=== PATIENT | female | born 2000 | race Two or more races ===

== ENCOUNTER 2025-02-15 22:49 | Emergency (ER) | payer MEDICAID, SELFPAY ==
--- NOTE | ~2025-02-15 | CT_ITS ---
CLINICAL HISTORY: New onset seizure, head injury CT head without contrast Comparison: None Findings: No intra-axial mass, midline shift, hydrocephalus, or acute hemorrhage. No significant atrophy-like change or white matter disease. There is no sinus or mastoid fluid. The orbits are unremarkable. There is no acute fracture. IMPRESSION: 1. No acute intracranial findings. This document has been electronically signed by: Seng Lockwood MD on 02/16/2025 00:56:21
--- NOTE | ~2025-02-15 | CT_ITS ---
CLINICAL HISTORY: New onset seizure, neck pain. CT cervical spine without contrast Comparison: None Findings: Exaggeration of the cervical lordosis. No significant degenerative change. No acute fractures or dislocations. Soft tissues of the neck are normal. Lung apices are clear. IMPRESSION: No acute findings. This document has been electronically signed by: Seng Lockwood MD on 02/16/2025 00:53:45
[2025-02-15 22:58] VITALS: BP 119/82; BP 138/93; PULSE 110; PULSE 118; RESP 20; TEMP 36.4; O2SAT 96; O2SAT 98; BMI 22.4
--- NOTE | 2025-02-15 23:11 | ECG_ITS ---
Test Reason : seizure Blood Pressure : */* mmHG Vent. Rate : 101 BPM Atrial Rate : 101 BPM P-R Int : 142 ms QRS Dur : 80 ms QT Int : 336 ms P-R-T Axes : 65 63 63 degrees QTcB Int : 435 ms Sinus tachycardia Otherwise normal ECG No previous ECGs available Referred By: Generic ED Physician Electronically Signed By: Bao Park
[2025-02-15] MEDS: ondansetron HCL 4 MG/2 ML VIAL IVPUSH (23:21)
--- NOTE | 2025-02-15 23:23 | ED.SEIZURE ---
HPI - Seizure General Chief Complaint: Seizure Stated Complaint: witnessed seizure at work Time Seen by Provider: 02/15/25 23:20 Source: patient, EMS and wrapping clerk Mode of arrival: EMS Limitations: no limitations History of Present Illness ED Provider: DR. Quinones HPI Narrative: 24-year-old female who is known to be healthy witnessed by her co-worker having seizure activity for about 30 seconds as a result patient fell backward hit her head patient declined any personal history of seizure or or taking antiseizure medication, patient is feeling nauseous, vomited 3 times. There is a superficial tongue bite on right side of the tongue patient has no pain, no urinary incontinence as per EMS patient was postictal confusion. No sick contacts. Declined any use of alcohol or recreational drugs. Related Data Previous Rx's ?Medication ?Instructions ?Recorded levetiracetam 500 mg tablet 500 mg PO BID #60 tabs 02/16/25 (Keppra) Allergies Allergy/AdvReac Type Severity Reaction Status Date / Time No Known Allergies Allergy Verified 02/15/25 23:01 Review of Systems Review of Systems: All other systems are reviewed and are negative Constitutional: Reports as per HPI and Reports no additional constitutional complaints Eyes: Reports as per HPI and Reports no additional eye complaints Reports system reviewed and no additional complaints, except as documented Cardiovascular: Reports as per HPI and Reports no additional cardiovascular complaints Respiratory: Reports as per HPI and Reports no additional respiratory complaints Gastrointestinal: Reports as per HPI and Reports no additional gastrointestinal complaints Genitourinary: Reports no additional female genitourinary complaints Musculoskeletal: Reports no additional musculoskeletal complaints Skin/Breast: Reports system reviewed and no additional complaints, except as docu Psychiatric: Reports no additional psychiatric complaints Endocrine: Reports no additional endocrine complaints Hematologic/Lymphatic: Reports no additional hematologic/lymphatic complaints Allergic/Immunologic: Reports no additional allergic/immunologic complaints Reports system reviewed and no additional complaints, except as documented and Reports Abnormal speech present [facility] Social History Social History Advance Directives: No Advance Directives Information Provided: Yes Physical Exam Vital Signs: Vital Signs: Last Vital Signs Temp 98.8 F 02/16/25 00:49 Pulse 80 02/16/25 00:49 Resp 18 02/16/25 00:49 BP 120/83 02/16/25 00:49 Pulse Ox 100 02/16/25 00:49 O2 Del Method Room Air 02/16/25 00:49 BMI result Body Mass Index 22.4 Vital signs have been reviewed and appear to be correct. Blood pressure elevated. Heart rate normal. Respiratory rate normal. Temperature normal. Oxygen saturation normal. Appearance: Alert. Oriented X3. No acute distress. Head: Normal external exam. Normocephalic. Atraumatic. No Gaytan signs noted. No raccoon eyes noted Eyes: PERRLA. EOMI. Conjunctiva and sclera normal. Eyelids normal. ENT: TM's Normal. Pharynx normal. Uvula midline. Moist mucous membranes. No trismus noted. No drooling noted. No muffled voice noted. Neck: Normal inspection. Neck supple. FROM. No adenopathy. Thyroid Normal. No meningeal signs. No neck mass noted. CVS: Normal heart rate and rhythm. Heart sound normal. No murmurs noted. Pulses normal throughout. Respiratory: No respiratory distress. Painless inspiration. Breath sounds normal. No wheezes/rales/rhonchi noted. Chest nontender. No accessory muscle usage noted or decreased air movement noted. Abdomen: Soft and nontender. Bowel sounds normal in all 4 quadrants. No distention noted. No organomegaly noted. No visible injury noted. Back: No CVA tenderness. Full range of motion noted. Skin: Skin warm and dry. Normal skin color. Normal skin turgor. No rashes/lesions/lacerations noted. Extremities: No lower extremity edema. Extremities exhibit normal range of motion. Extremities nontender. Neuro: Mental status: Normal attention, orientation, memory, and affect. Cranial nerves: Pupils are equal, round and reactive to light, EOMI, visual joseph are fall, face is symmetric, facial sensations are normal. Motor examination normal muscle tone, strength to 4 extremities. DTR are +2, planter's are flexor. Sensory exam; normal coordination, no ataxia, gait stable. Cerebellar exam: Qsurdb-lu-[id number] and frnh-hq-[id number] is normal. Extrapyramidal system: No tremors, no rigidity with normal facial expressions. Pronator drift not present Course Reevaluation(s) Reevaluation #1: 24-year-old female otherwise healthy new onset of seizure. Normal neuro exam, head CT is unremarkable, GCS of 15, normal electrolyte, will start on Keppra. Patient was instructed to follow-up with Dr. Jacinto as an outpatient. Patient is positive for COVID-19 was instructed to use face mask at all times, frequent hand wash, keep social distancing, self quarantine. Time: 01:00 Medications Administered Discontinued Medications Generic Name Dose Route Start Last Admin Trade Name Blackq PRN Reason Stop Dose Admin Levetiracetam 500 mg 02/15/25 23:40 02/16/25 00:04 Levetiracetam 500 Mg Tablet PO 02/15/25 23:41 500 mg ONCE ONE Administration Ondansetron HCl 4 mg 02/15/25 23:17 02/15/25 23:21 Ondansetron Hcl 4 Mg/2 Ml Vial IVPUSH 02/15/25 23:18 4 mg ONCE ONE Administration Ondansetron HCl 4 mg 02/15/25 23:40 02/15/25 23:47 Ondansetron Odt 4 Mg Tab.Rapdis TRANSLINGU 02/15/25 23:41 Not Given ONCE ONE Medical Decision Making Differential Diagnosis Differential Diagnoses: The differential diagnosis associated with the presentation includes (Intracranial bleed, intracranial pathology, electrolyte derangement, UTI, drug abuse, alcohol use, .) Admission/Observation Consideration of admission/observation: Escalation of care including admission/observation considered Lab Data 02/15/25 23:52 02/15/25 23:52 Labs: Lab Results 02/15/25 02/16/25 Range/Units 23:52 00:02 WBC 9.7 (4.8-10.8) X10*3/uL RBC 4.45 (4.20-5.50) X10*6/uL Hgb 13.4 (12.0-16.0) g/dl Hct 38.0 (37.0-47.0) % MCV 85.4 (80.0-98.0) fL MCH 30.1 (27.0-33.0) pg MCHC 35.3 H (31.0-35.0) g/dl RDW 12.0 (11.0-16.0) % Plt Count 198 (160-400) X10*3/uL MPV 10.5 (9.4-12.3) fL Immature Gran % (Auto) 0.4 (0.0-0.4) % Neut % (Auto) 76.5 H (45-73) % Lymph % (Auto) 14.2 L (20-40) % Guthrie % (Auto) 8.0 (2-11) % Eos % (Auto) 0.7 (0-4) % Baso % (Auto) 0.2 (0-2) % Lymph # (Auto) 1.4 (1.2-4.9) X10*3/uL Guthrie # (Auto) 0.8 (0.1-1.2) X10*3/uL Eos # (Auto) 0.1 (0.0-0.4) X10*3/uL Baso # (Auto) 0.0 (0.0-0.2) X10*3/uL Abs Immat Gran (auto) 0.04 H (0.00-0.03) X10*3/uL Absolute Neuts (auto) 7.4 (2.0-8.3) x10*3/uL Absolute Nucleated RBC 0.000 (0.0-0.012) X10*3/uL Nucleated RBC % (auto) 0.0 (0.0-0.2) /100WBC Sodium 139 (135-145) mmol/L Potassium 3.3 (3.3-5.1) mmol/L Chloride 107 (96-108) mmol/L Carbon Dioxide 24 (22-29) mmol/L Anion Gap 11 L (12-20) BUN 9 (9-16) mg/dL Creatinine 0.70 (0.5-1.4) mg/dL Estim Creat Clear Calc 110.5 Estimated GFR > 60 Random Glucose 122 H (60-115) mg/dL Calcium 9.1 (8.4-10.2) mg/dL Total Bilirubin 0.2 (0.0-1.0) mg/dL Direct Bilirubin < 0.2 (0.0-0.5) mg/dL AST 20 (5-31) U/L ALT 11 (0-31) U/L Alkaline Phosphatase 102 (39-117) U/L Total Protein 7.7 (6.5-8.0) g/dL Albumin 4.4 (3.5-5.0) g/dL Lipase 12 (8-78) U/L Beta HCG, Quant < 2 mIU/mL Ethyl Alcohol < 10 mg/dL Influenza Type A (PCR) NEGATIVE (Negative) Influenza Type B (PCR) NEGATIVE (Negative) RSV RNA Qual (PCR) NEGATIVE (Negative) SARS-CoV-2 RNA (RT-PCR) POSITIVE A (Negative) Discharge Plan Discharge Clinical Impression: New onset seizure, COVID-19 virus infection Patient Disposition: Home, Self-Care Instructions: New-Onset Seizure in Adults (ED) Prescriptions: New levetiracetam [Keppra] 500 mg tablet 500 mg PO BID Qty: 60 0RF Stand Alone Forms: Work/School Release Print Language: Arabic
[2025-02-15 23:55] LABS: MANUAL DIFF FLAG NO
[2025-02-15 23:57] LABS: Basophils Percent Auto 0.2 % (0-2); Eosinophils Absolute Auto 0.1 X10*3/uL (0.0-0.4); Eosinophils Percent Auto 0.7 % (0-4); Hemoglobin 13.4 g/dl (12.0-16.0); Imm Gran Abs Auto 0.04 X10*3/uL (0.00-0.03); Imm Gran Pct Auto 0.4 % (0.0-0.4); Lymphocytes Absolute Auto 1.4 X10*3/uL (1.2-4.9); Lymphocytes Percent Auto 14.2 % (20-40); Mean Corpuscular HGB Conc 35.3 g/dl (31.0-35.0); Mean Corpuscular Hemoglobin 30.1 pg (27.0-33.0); Mean Corpuscular Volume 85.4 fL (80.0-98.0); Mean Platelet Volume 10.5 fL (9.4-12.3); Monocytes Absolute Auto 0.8 X10*3/uL (0.1-1.2); Neutrophils Absolute Auto 7.4 x10*3/uL (2.0-8.3); Neutrophils Percent Auto 76.5 % (45-73); Platelet Count 198 X10*3/uL (160-400); Red Blood Count 4.45 X10*6/uL (4.20-5.50); White Blood Count 9.7 X10*3/uL (4.8-10.8)
[2025-02-16] MEDS: levETIRAcetam 500 MG TABLET PO (00:04)
[2025-02-16 00:21] LABS: Anion Gap 11 (12-20); Blood Urea Nitrogen 9 mg/dL (9-16); Calcium 9.1 mg/dL (8.4-10.2); Carbon Dioxide 24 mmol/L (22-29); Chloride 107 mmol/L (96-108); Creatinine Clr Calc Pharmacy 110.5; Estimated Glomerular Filt Rate > 60; Ethanol < 10 mg/dL; Glucose Random 122 mg/dL (60-115); Potassium 3.3 mmol/L (3.3-5.1); Sodium 139 mmol/L (135-145)
[2025-02-16 00:26] LABS: Alanine Aminotransferase 11 U/L (0-31); Albumin Level 4.4 g/dL (3.5-5.0); Aspartate Amino Transferase 20 U/L (5-31); Bilirubin Direct < 0.2 mg/dL (0.0-0.5); Bilirubin Total 0.2 mg/dL (0.0-1.0); Lipase 12 U/L (8-78); Total Protein 7.7 g/dL (6.5-8.0)
[2025-02-16 00:27] LABS: Alkaline Phosphatase 102 U/L (39-117); HCG Quantitative < 2 mIU/mL
[2025-02-16 00:47] LABS: Influenza A PCR NEGATIVE (Negative); Influenza B PCR NEGATIVE (Negative); Resp Syncy Virus RNA Qual PCR NEGATIVE (Negative); SARS COV2 PCR INHOUSE POSITIVE (Negative)
[2025-02-16 00:49] VITALS: BP 120/83; PULSE 80; RESP 18; TEMP 37.1; O2SAT 100
[2025-02-16 04:00] VITALS: BP 98/60; PULSE 88; RESP 13; TEMP 37.2; O2SAT 100
[2025-02-16 04:18] VITALS: BP 98/60; PULSE 88; RESP 13; TEMP 37.2; O2SAT 100
== END 2025-02-16 04:22 | disposition home or self-care (01) ==
PROVIDERS: Emergency Provider Emergency Medicine
DX: U07.1 COVID-19 (principal); G40.909 Epilepsy, unspecified, not intractable, without status epilepticus; Z79.899 Other long term (current) drug therapy
CPT/HCPCS: 0241U; 36415; 70450; 72125; 80048; 80076; 80307; 83690; 84702; 85025; 93005; 96374; 99284; J2405

== ENCOUNTER → 2025-02-15 23:11 | Outpatient (BNV) | payer SELFPAY | PROVIDERS: Emergency Provider Emergency Medicine; Visit Provider Internal Medicine Cardiovascular Disease | DX: R00.0 Tachycardia, unspecified (principal) | CPT/HCPCS: 93010 ==

== ENCOUNTER → 2025-02-15 23:40 | Outpatient (BNV) | payer SELFPAY | PROVIDERS: Emergency Provider Emergency Medicine; Visit Provider Radiology Diagnostic Radiology | DX: M54.2 Cervicalgia (principal) | CPT/HCPCS: 70450; 72125 ==

== ENCOUNTER 2025-04-06 10:24 | Outpatient (REF) | payer SELFPAY ==
[2025-04-06 11:12] LABS: Hematocrit 43.2 % (37.0-47.0); Hemoglobin 14.7 g/dl (12.0-16.0); Mean Corpuscular Hemoglobin 29.8 pg (27.0-33.0); Mean Corpuscular Volume 87.4 fL (80.0-98.0); Mean Platelet Volume 10.8 fL (9.4-12.3); Platelet Count 252 X10*3/uL (160-400); Red Blood Count 4.94 X10*6/uL (4.20-5.50); Red Cell Distribution Width 12.1 % (11.0-16.0); White Blood Count 8.8 X10*3/uL (4.8-10.8)
[2025-04-06 11:22] LABS: Estimated Average Glucose 97 mg/dL; Hemoglobin A1C 116.4237 umol/L; Total Hemoglobin (HGBA1C) 3734.7163 umol/L
--- OUTSIDE RECORDS SUMMARY | 2025-04-06 11:41 | XMS_ITS | Encounter Summary ---
Author Organization [employer] Address [address] [facility] [address] [place] [address] Care Team Providers Care Record Clerk Name Role Phone Amairani Nolan DO Primary Care Provider [phone] Encounter Details Date Type Department Care Team (Latest Contact Info) Description 04/06/2025 Travel Social History Tobacco Use Types Packs/Day Years Used Date Smoking Tobacco: Never Assessed Comments Unknown Sex and Gender Information Value Date Recorded Sex Assigned at Female 04/06/2025 8:59 AM EDT Legal Sex Female 3:32 PM EDT Gender Identity Female 04/06/2025 8:59 AM EDT Sexual Orientation Straight 04/06/2025 8: 59 AM EDT documented as of this encounter Plan of Treatment Not on file documented as of this encounter Visit Diagnoses Not on filedocumented in this encounter Care Teams Record Clerk Relationship Specialty Start Date End Date Amairani Nolan DO [address] [place] [phone] PCP - General Family Medicine 04/06/25 documented as of this encounter
--- OUTSIDE RECORDS SUMMARY | 2025-04-06 11:41 | XMS_ITS | Clinical Summary ---
Author Organization [employer] Address [address] [facility] [address] [place] [address] Care Team Providers Care Cps Team Lead Name Role Phone Ovidio Amairani Primary Care Provider Allergies No known active allergies Medications levETIRAcetam (Keppra) 500 MG tablet Take 1 tablet (500 mg) by mouth 2 times daily. 60 tablet 3 5 026 Active levETIRAcetam (Keppra) 500 MG tablet Take 1 tablet by mouth 2 times daily. 5 025 Discontinued(Re order (will not trigger notification to Pharmacy)) Active Problems Problem Noted Date Diagnosed Date History of COVID-19 04/06/2025 Encounters Date Type Department Care Team Description 04/06/2025 9:20 AM EDT Office Visit [facility] [address] [place] [id number] New onset seizure (CMS/HCC) (Primary Dx) 04/06/2025 Travel from Last 3 Months Social History Tobacco Use Types Packs/Day Years Used Date Smoking Tobacco: Never Assessed Comments Unknown Sex and Gender Information Value Date Recorded Sex Assigned at Female 04/06/2025 8:59 AM EDT Legal Sex Female 3:32 PM EDT Gender Identity Female 04/06/2025 8:59 AM EDT Sexual Orientation Straight 04/06/2025 8: 59 AM EDT Last Filed Vital Signs Vital Sign Reading Time Taken Comments Blood Pressure 138/82 04/06/2025 9:38 AM EDT Pulse 70 04/06/2025 9:38 AM EDT Temperature 35.9 ??C (96.6 ??F) 04/06/2025 9:38 AM ED T Respiratory Rate 18 04/06/2025 9:38 AM EDT Oxygen Saturation 98% 04/06/2025 9:38 AM EDT Inhaled Oxygen Concentration - - Weight 59.3 kg (130 lb 12.8 oz) 04/06/2025 9:38 AM EDT Height - - Body Mass Index - - Plan of Treatment Health Maintenance Due Date Last Done Comments Depression Screening 1999 HIV Screening 1999 SDOH Screening 1999 Alcohol/Substance Use Screening 2011 Tobacco Screening 2011 Family Planning (PISQ) 2014 HPV Vaccines (1 - 3-dose series) 2014 Hepatitis C Screening 2017 DTaP/Tdap/Td Vaccines (1 - Tdap) 2018 Hepatitis B Vaccines (1 of 3 - 19+ 3-dose series) 2018 Pap Smear 2020 COVID-19 Vaccine (1 - 2023-2 5 season) 2024 Influenza Vaccine (#1) 2024 Zoster Vaccines (1 of 2) 2049 RSV Patients and Pa tients Aged 60 years or older (1 - 1-dose 75+ series) 2074 HIB Vaccines Aged Out No longer eligi ble based on patient's age to complete this topic Hepatitis A Vaccines Aged Out No long er eligible based on patient's age to complete this topic IPV Vaccines Aged Out No longer eligi ble based on patient's age to complete this topic Meningococcal Vaccine Aged Out No ellie robert eligible based on patient's age to complete this topic Pneumococcal Vaccine: Pediat rics (0 to 5 Years) and At-Risk Patients (6 to 49) Years) Aged Out No longer eligible b ased on patient's age to complete this topic RSV under 20 months Aged Out No longe r eligible based on patient's age to complete this topic Rotavirus Vaccines Aged Out No longer eligible based on patient's age to complete this topic Procedures Procedure Name Priority Date/Time Associated Diagnosis Comments CBC Routine 04/06/2025 10:29 AM EDT New onset seizure (CMS/HCC) HEMOGLOBIN A1C Routine 04/06/2025 10:29 AM EDT New onset seizure (CMS/HCC) from Last 3 Months Results * CBC (04/06/2025 10:29 AM EDT) White Blood Count 8.8 4.8 - 10.8 X10*3/uL [facility] Red Blood Count 4.94 4.20 - 5.50 X10*6/uL [facility] Hemoglobin 14.7 12.0 - 16.0 g/dl [facility] Hematocrit 43.2 37.0 - 47.0 % [facility] Mean Corpuscular Volume 87.4 80.0 - 98.0 fL [facility] Mean Corpuscular Hemoglobin 29.8 27.0 - 33.0 pg [facility] Mean Corpuscular HGB Conc 34.0 31.0 - 35.0 g/dl [facility] Red Cell Distribution Width 12.1 11.0 - 16.0 % [facility] Platelet Count 252 160 - 400 X10*3/uL [facility] Mean Platelet Volume 10.8 9.4 - 12.3 fL [facility] NRBC Pct Auto 0.0 0.0 - 0.2 /100WBC [facility] NRBC Abs Auto 0.000 0.0 - 0.012 X10*3/uL [facility] Blood Venous blood specimen / Unknown 04/06/2025 10:29 AM EDT 04/06/2025 11:05 AM EDT us Amairani Nolan DO LAB BLOOD ORDERABLES Final R esult [facility] [address] [place] [phone] * Hemoglobin A1c (04/06/2025 10:29 AM EDT) Hemoglobin A1c 5.0 <6.0 % [facility] Comment:Hemoglobin A1C Refer ence Range Adults: 4.8 - 6.0 % Non diabetic: < 6.0 % Goal: < 7.0 %Additional Action Suggested: > 8.0 %Note: Hemoglobin A1c results are invalid for patients with abnormal amounts of HbF. Blood transfusions may impact the HbA1c concentration in the patient sample. Estimated Average Glucose 97 mg/dL [facility] Comment:eAG = Estimated ave rage glucose which is %A1C expressed asaverage glucose, using the formula of the D9H-JstynldFxsekyj Glucose study (ADAG), Diabetes Care, Vol.31,#8,Jun. 2007 Blood Venous blood specimen / Unknown 04/06/2025 10:29 AM EDT 04/06/2025 11:05 AM EDT us Amairani Nolan DO LAB BLOOD ORDERABLES Final R esult [facility] [address] [place] [phone] [phone] from Last 3 Months [facility] Care Teams Cps Team Lead Relationship Specialty Start Date End Date Amairani Nolan DO [address] [place] [phone] PCP - General Family Medicine 04/06/25
--- OUTSIDE RECORDS SUMMARY | 2025-04-06 11:41 | XMS_ITS | Encounter Summary ---
Author Organization [employer] Address [address] [facility] [address] [place] [address] Care Team Providers Care Hi Ranger Operator Name Role Phone Amairani Nolan DO Primary Care Provider Reason for Referral * Consultation (Urgent) - Pending Review Specialty Diagnoses / Procedures Referred By Dina kim Referred To Contact Neurology Diagnoses New onset seizure (CMS/HCC) Amairani Nolan DO [address] [place] [address] Phone: tel: fax: Referral ID Status Reason Start Date Expiration Date Visits Requested Visits Authorized [id number] Pending Review Specialty Services Required 04/06/2025 04/06/2026 1 1 * Neurology (Routine) - Authorized Specialty Diagnoses / Procedures Referred By Dina kim Referred To Contact Diagnoses New onset seizure (CMS/HCC) Procedures EEG awake or drowsy routine Amairani Nolan DO [address] [place] [address] Phone: tel: fax: [facility] [address] [place] [address] Phone: tel: fax: Referral ID Status Reason Start Date Expiration Date V isits Requested Visits Authorized [id number] Authorized 04/06/2025 04/06/2026 1 1 Reason for Visit * Reason Comments Seizures Encounter Details Date Type Department Care Team (Late st Contact Info) Description 04/06/2025 9:20 AM EDT Office Visit [facility] [address] [place] [address] New onset seizure (CMS/HCC) (Primary Dx) Social History Tobacco Use Types Packs/Day Years Used Date Smoking Tobacco: Never Assessed Comments Unknown Sex and Gender Information Value Date Recorded Sex Assigned at Female 04/06/2025 8:59 AM EDT Legal Sex Female 3:32 PM EDT Gender Identity Female 04/06/2025 8:59 AM EDT Sexual Orientation Straight 04/06/2025 8: 59 AM EDT documented as of this encounter Last Filed Vital Signs Vital Sign Reading [...] - - Body Mass Index - - documented in this encounter Plan of Treatment Scheduled Orders Name Type Priority Associated Diagnoses Orde r Schedule EEG awake or drowsy routine Neurology Routine New onset seizure (CMS/HCC) Expected: 04/06/2025 (Approximate), Expires: 04/06/2026 T4, Free Lab Routine New onset seizure (CMS/HCC) Expected: 04/06/2025 (Approximate), Expires: 04/06/2026 Lipid Panel, Standard Lab Routine New onset seizure (CMS/HCC) Expected: 04/06/2025 (Approximate), Expires: 04/06/2026 TSH Lab Routine New onset seizure (CMS/HCC) Expected: 04/06/2025 (Approximate), Expires: 04/06/2026 Vitamin D, 25-Hydroxy, Total, Immunoassay Lab Routine New onset seizure (CMS/HCC) Expected: 04/06/2025 (Approximate), Expires: 04/06/2026 Hepatic Function Panel Lab Routine New onset seizure (CMS/HCC) Expected: 04/06/2025 (Approximate), Expires: 04/06/2026 Basic Metabolic Panel Lab Routine New onset seizure (CMS/HCC) Expected: 04/06/2025 (Approximate), Expires: 04/06/2026 Hepatitis B surface antigen, EIA Lab Routine New onset seizure (CMS/HCC) Expected: 04/06/2025 (Approximate), Expires: 04/06/2026 Chlamydia/N. Gonorrhoeae RNA, TMA, Urogenitial Microbiology Routine New onset seizure (CMS/HCC) Ordered: 04/06/2025 HIV-1/2 Antigen and Antibodies, Fourth Generation, with Reflexes Lab Routine New onset seizure (CMS/HCC) Expected: 04/06/2025 (Approximate), Expires: 04/06/2026 Hepatitis C Antibody with Reflex to HCV, RNA, Quantitative, Real-Time PCR Lab Routine New onset seizure (CMS/HCC) Expected: 04/06/2025, Expires: 04/06/2026 RPR (Monitor) with Reflex to??Titer Lab Routine New onset seizure (CMS/HCC) Expected: 04/06/2025, Expires: 04/06/2026 Hepatitis B Surface Antibody, Qualitative Lab Routine New onset seizure (CMS/HCC) Expected: 04/06/2025 (Approximate), Expires: 04/06/2026 Hepatitis A Antibody, Total Lab Routine New onset seizure (CMS/HCC) Expected: 04/06/2025 (Approximate), Expires: 04/06/2026 Hepatitis B Core Antibody, Total Lab Routine New onset seizure (CMS/HCC) Expected: 04/06/2025 (Approximate), Expires: 04/06/2026 T-SPOT??.TB Lab Routine New onset seizure (CMS/HCC) Expected: 04/06/2025 (Approximate), Expires: 04/06/2026 Levetiracetam Lab Routine New onset seizure (CMS/HCC) Expected: 04/06/2025 (Approximate), Expires: 04/06/2026 Scheduled Referrals Name Type Priority Associated Diagnoses Orde r Schedule Referral to Neurology Outpatient Referral Urgent New onset seizure (CMS/HCC) Expected: 04/06/2025 (Approximate), Expires: 04/06/2026 documented as of this encounter Procedures Procedure Name Priority Date/Time Associated Diagnosis Comments CBC Routine 04/06/2025 10:29 AM EDT New onset seizure (CMS/HCC) HEMOGLOBIN A1C Routine 04/06/2025 10:29 AM EDT New onset seizure (CMS/HCC) documented in this encounter Results * CBC (04/06/2025 10:29 AM EDT) White Blood Count 8.8 4.8 - 10.8 X10*3/uL [facility] Red Blood Count 4.94 4.20 - 5.50 X10*6/uL [facility] Hemoglobin 14.7 12.0 - 16.0 g/dl [facility] Hematocrit 43.2 37.0 - 47.0 % [facility] Mean Corpuscular Volume 87.4 80.0 - 98.0 fL [facility] Mean Corpuscular Hemoglobin 29.8 27.0 - 33.0 pg [facility] Mean Corpuscular HGB Conc 34.0 31.0 - 35.0 g/dl [facility] Red Cell Distribution Width 12.1 11.0 - 16.0 % [facility] Platelet Count 252 160 - 400 X10*3/uL [facility] Mean Platelet Volume 10.8 9.4 - 12.3 fL [facility] NRBC Pct Auto 0.0 0.0 - 0.2 /100WBC [facility] NRBC Abs Auto 0.000 0.0 - 0.012 X10*3/uL [facility] Blood Venous blood specimen / Unknown 04/06/2025 10:29 AM EDT 04/06/2025 11:05 AM EDT us Amairani Nolan DO LAB BLOOD ORDERABLES Final R esult [facility] [address] [place] [phone] * Hemoglobin A1c (04/06/2025 10:29 AM EDT) Hemoglobin A1c 5.0 <6.0 % [facility] Comment:Hemoglobin A1C Refer ence Range Adults: 4.8 - 6.0 % Non diabetic: < 6.0 % Goal: < 7.0 %Additional Action Suggested: > 8.0 %Note: Hemoglobin A1c results are invalid for patients with abnormal amounts of HbF. Blood transfusions may impact the HbA1c concentration in the patient sample. Estimated Average Glucose 97 mg/dL [facility] Comment:eAG = Estimated ave rage glucose which is %A1C expressed asaverage glucose, using the formula of the D4T-YdirnudTicebnl Glucose study (ADAG), Diabetes Care, Vol.31,#8,2007 Blood Venous blood specimen / Unknown 04/06/2025 10:29 AM EDT 04/06/2025 11:05 AM EDT us Amairani Nolan DO LAB BLOOD ORDERABLES Final R esult [facility] [address] [place] [phone] documented in this encounter Visit Diagnoses Diagnosis New onset seizure (CMS/HCC)- Primary documented in this encounter Care Teams Hi Ranger Operator Relationship Specialty Start Date End Date Amairani Nolan DO [address] [place] [address] PCP - General Family Medicine 04/06/25 documented as of this encounter
[2025-04-06 12:11] LABS: Alanine Aminotransferase 21 U/L (0-31); Albumin Level 5.3 g/dL (3.5-5.0); Alkaline Phosphatase 111 U/L (39-117); Anion Gap 12 (12-20); Aspartate Amino Transferase 18 U/L (5-31); Bilirubin Direct 0.2 mg/dL (0.0-0.5); Bilirubin Total 0.4 mg/dL (0.0-1.0); Blood Urea Nitrogen 7 mg/dL (9-16); Calcium 9.9 mg/dL (8.4-10.2); Carbon Dioxide 25 mmol/L (22-29); Chloride 106 mmol/L (96-108); Cholesterol 153 mg/dL (<200); Estimated Glomerular Filt Rate > 60; Glucose Random 100 mg/dL (60-115); HDL Cholesterol 46 mg/dL (>40); LDL Cholesterol Calculated 95 mg/dL (<100); Potassium 3.1 mmol/L (3.3-5.1); Sodium 140 mmol/L (135-145); Total Protein 8.6 g/dL (6.5-8.0); Triglycerides 62 mg/dL (<150)
[2025-04-06 12:27] LABS: Hepatitis A Antibody IgG REACTIVE (Nonreactive); ~Hepatitis A Antibody IgG 10.75 S/CO (0.00-0.99)
[2025-04-06 12:28] LABS: HBS Num1 0.08 mIU/mL (0-7.99); HBc Num1 0.17 S/CO (0.00-0.79); HIV AB/AG Nonreactive (Nonreactive); HIV Num 1 0.07 S/CO (0.00-0.99); Hepatitis B Core Antibody Nonreactive (Nonreactive); ~HepC Num1 0.26 S/CO (0.00-0.79); ~Hepatitis B Surface Antibody NONREACTIVE (Nonreactive); ~Hepatitis C Antibody Nonreactive (Nonreactive)
[2025-04-06 12:29] LABS: Free T4 (Free Thyroxine) 1.09 ng/dL (0.71-1.85); Thyroid Stimulating Hormone 1.85 uIU/mL (0.32-4.0); Vitamin D 25-OH Total 27.8 ng/mL (>30)
[2025-04-06 13:07] LABS: HBsAGNum1 0.24 S/CO (0.00-0.99); Hepatitis B Surface Antigen Negative (Negative)
[2025-04-06 13:54] LABS: CT PCR DETECTED (Not Detect.); NG PCR NOT DETECTED (Not Detect.)
[2025-04-08 20:38] LABS: TS Negative Control Passed; TS Panel A 0; TS Panel B 0; TS Positive Control Passed; TSpotTB Negative (Negative)
[2025-04-09 16:02] LABS: RPR Rapid Plasma Reagin NON-REACTIVE (NON-REACTIVE)
[2025-04-09 20:18] LABS: Levetiracetam Keppra <2.0 mcg/mL (6.0-46.0)
== END 2025-04-06 10:25 | disposition home or self-care (01) ==
LOC: HO.HHCL 10:24
PROVIDERS: Visit Provider Family Medicine
DX: R56.9 Unspecified convulsions (principal); Z13.1 Encounter for screening for diabetes mellitus; Z13.6 Encounter for screening for cardiovascular disorders
CPT/HCPCS: 80048; 80061; 80076; 80177; 82306; 83036; 84439; 84443; 85027; 86481; 86592; 86704; 86706; 86708; 86803; 87340; 87389; 87491; 87591

== ENCOUNTER 2025-11-02 13:22 | Emergency (ER) | payer MEDICAID, OTHER, SELFPAY ==
--- NOTE | 2025-11-02 | ECG_ITS ---
Test Reason : tachy Blood Pressure : */* mmHG Vent. Rate : 123 BPM Atrial Rate : 123 BPM P-R Int : 122 ms QRS Dur : 72 ms QT Int : 314 ms P-R-T Axes : 56 62 40 degrees QTcB Int : 449 ms Sinus tachycardia Otherwise normal ECG When compared with ECG of 15-Feb-2025 23:13, T wave amplitude has increased in Anterior leads Referred By: Maricel Quinones Electronically Signed By: DESIRAE GUZMAN
--- NOTE | ~2025-11-02 | CT_ITS ---
EXAMINATION: CT HEAD WITHOUT IV CONTRAST HISTORY: Seizure. TECHNIQUE: Unenhanced helical CT of the head was performed per standard departmental protocol. Coronal and sagittal reformats of the head were also evaluated. One or more of the following techniques was used for dose reduction: Automated exposure control, adjustment of the mA and/or kV according to patient size, use of iterative reconstruction technique. DLP: 569 mGy-cm COMPARISON: Previous head CT January 2025 FINDINGS: BRAIN: The brain parenchyma is unremarkable. There is normal garnica/white differentiation. The ventricular system is normal in size and configuration. There is no mass effect or midline shift. No intra- or extra-axial fluid collections are identified. SINUSES: The visualized paranasal sinuses are clear. The mastoid air cells and middle ear cavities are well pneumatized. ORBITS: The visualized orbits are unremarkable. BONES/SOFT TISSUES: The extracranial soft tissues are unremarkable. The calvarium is intact. No suspicious lytic or sclerotic lesions. CT/CT head/brain wo IV con IMPRESSION: Unremarkable exam. Electronically signed by: Rema Stone MD 11/02/2025 04:23 PM [facility]
[2025-11-02 13:33] VITALS: BP 109/82; BP 129/79; PULSE 128; RESP 19; TEMP 36.7; O2SAT 99; BMI 27.4
--- NOTE | 2025-11-02 13:36 | ED.SEIZURE ---
HPI - Seizure General Chief Complaint: Seizure Stated Complaint: SEIZURE ACTIVITY Time Seen by Provider: 11/02/25 13:31 Source: patient, EMS and manager support services Mode of arrival: EMS Limitations: no limitations History of Present Illness ED Provider: DR. Quinones HPI Narrative: 25-year-old female with past medical history significant for seizure patient was evaluated in the emergency department on 02/15/2025 for seizure and was discharged on Keppra, due to absence of health insurance and no PCP patient ran out of her medication for the last month, patient was at work today when witnessed by another co-worker to have tonic-clonic seizure causing her to fall backward and hit her head, patient has no recollection of the events, complaining of a mild headache, no neck pain, no chest pain, no shortness of breath, no abdominal pain, no nausea, no vomiting, no weakness, no numbness, patient declined any aura or warning sign before the seizure. Patient normally do not drive. Related Data Previous Rx's ?Medication ?Instructions ?Recorded levetiracetam 500 mg tablet 500 mg PO BID #60 tabs 02/16/25 (Keppra) levetiracetam 500 mg tablet 500 mg PO BID #90 tabs 11/02/25 (Keppra) Allergies Allergy/AdvReac Type Severity Reaction Status Date / Time No Known Allergies Allergy Verified 11/02/25 13:35 Review of Systems Review of Systems: All other systems are reviewed and are negative Constitutional: Reports as per HPI and Reports no additional constitutional complaints Eyes: Reports as per HPI and Reports no additional eye complaints Reports system reviewed and no additional complaints, except as documented Cardiovascular: Reports as per HPI and Reports no additional cardiovascular complaints Respiratory: Reports as per HPI and Reports no additional respiratory complaints Gastrointestinal: Reports as per HPI and Reports no additional gastrointestinal complaints Genitourinary: Reports no additional female genitourinary complaints Musculoskeletal: Reports no additional musculoskeletal complaints Skin/Breast: Reports system reviewed and no additional complaints, except as docu Psychiatric: Reports no additional psychiatric complaints Endocrine: Reports no additional endocrine complaints Hematologic/Lymphatic: Reports no additional hematologic/lymphatic complaints Allergic/Immunologic: Reports no additional allergic/immunologic complaints Reports system reviewed and no additional complaints, except as documented and Reports Abnormal speech present [facility] Social History Social History Smoked in Last 30 Days: No Use of substances other than those prescribed or required for medical reasons: No Advance Directives: No Advance Directives Information Provided: No Do you have a plan to hurt others: No Plan Patient : No Physical Exam Vital Signs: Vital Signs: Last Vital Signs Temp 98.0 F 11/02/25 15:57 Pulse 94 11/02/25 15:57 Resp 16 11/02/25 15:57 BP 111/68 11/02/25 15:57 Pulse Ox 100 11/02/25 15:57 O2 Del Method Room Air 11/02/25 15:57 BMI result Body Mass Index 27.4 Vital signs have been reviewed and appear to be correct. Blood pressure elevated. Heart rate elevated Respiratory rate normal. Temperature normal. Oxygen saturation normal. Appearance: Alert. Oriented X3. No acute distress. Head: Normal external exam. Normocephalic. Atraumatic. No Gaytan signs noted. No raccoon eyes noted Eyes: PERRLA. EOMI. Conjunctiva and sclera normal. Eyelids normal. ENT: TM's Normal. Pharynx normal. Uvula midline. Moist mucous membranes. No trismus noted. No drooling noted. No muffled voice noted. Neck: Normal inspection. Neck supple. FROM. No adenopathy. Thyroid Normal. No meningeal signs. No neck mass noted. CVS: Normal heart rate and rhythm. Heart sound normal. No murmurs noted. Pulses normal throughout. Respiratory: No respiratory distress. Painless inspiration. Breath sounds normal. No wheezes/rales/rhonchi noted. Chest nontender. No accessory muscle usage noted or decreased air movement noted. Abdomen: Soft and nontender. Bowel sounds normal in all 4 quadrants. No distention noted. No organomegaly noted. No visible injury noted. Back: No CVA tenderness. Full range of motion noted. Skin: Skin warm and dry. Normal skin color. Normal skin turgor. No rashes/lesions/lacerations noted. Extremities: No lower extremity edema. Extremities exhibit normal range of motion. Extremities nontender. Neuro: GCS of 15. Mental status: Normal attention, orientation, memory, and affect. Cranial nerves: Pupils are equal, round and reactive to light, EOMI, visual joseph are fall, face is symmetric, facial sensations are normal. Motor examination normal muscle tone, strength to 4 extremities. DTR are +2, planter's are flexor. Sensory exam; normal coordination, no ataxia, gait stable. Cerebellar exam: [id number] and tzfy-dp-[id number] is normal. Extrapyramidal system: No tremors, no rigidity with normal facial expressions. Pronator drift not present Course Reevaluation(s) Reevaluation #1: 25-year-old female ran out of antiseizure medication because lack of health insurance presented after having another seizure today. Neurologically intact, head CT is unremarkable, electrolyte with a normal patient received loading dose of Keppra in the ED will prescribe a medication supply for the next 90 days. Time: 16:33 Medications Administered Discontinued Medications Generic Name Dose Route Start Last Admin Trade Name Freq PRN Reason Stop Dose Admin Levetiracetam 500 mg in 100 mls @ 400 mls/hr 11/02/25 13:37 11/02/25 15:19 Keppra IV 11/02/25 13:51 Infused ONCE ONE Infusion Medical Decision Making Differential Diagnosis Differential Diagnoses: The differential diagnosis associated with the presentation includes (Recurrent seizure, closed head injury, electrolyte derangement, subtherapeutic antiseizure medication, severe anemia.) Admission/Observation Consideration of admission/observation: Escalation of care including admission/observation considered Lab Data MDM Lab Attestation statement: I reviewed the patient's lab results. 11/02/25 13:58 11/02/25 13:58 Labs: Lab Results 11/02/25 Range/Units 13:58 WBC 10.2 (4.8-10.8) X10*3/uL RBC 4.44 (4.20-5.50) X10*6/uL Hgb 13.1 (12.0-16.0) g/dl Hct 38.9 (37.0-47.0) % MCV 87.6 (80.0-98.0) fL MCH 29.5 (27.0-33.0) pg MCHC 33.7 (31.0-35.0) g/dl RDW 11.9 (11.0-16.0) % Plt Count 206 (160-400) X10*3/uL MPV 11.2 (9.4-12.3) fL Immature Gran % (Auto) 0.3 (0.0-0.4) % Neut % (Auto) 73.9 H (45-73) % Lymph % (Auto) 19.4 L (20-40) % [place] % (Auto) 5.2 (2-11) % Eos % (Auto) 0.8 (0-4) % Baso % (Auto) 0.4 (0-2) % Lymph # (Auto) 2.0 (1.2-4.9) X10*3/uL [place] # (Auto) 0.5 (0.1-1.2) X10*3/uL Eos # (Auto) 0.1 (0.0-0.4) X10*3/uL Baso # (Auto) 0.0 (0.0-0.2) X10*3/uL Abs Immat Gran (auto) 0.03 (0.00-0.03) X10*3/uL Absolute Neuts (auto) 7.5 (2.0-8.3) x10*3/uL Absolute Nucleated RBC 0.000 (0.0-0.012) X10*3/uL Nucleated RBC % (auto) 0.0 (0.0-0.2) /100WBC Sodium 137 (135-145) mmol/L Potassium 3.9 D (3.3-5.1) mmol/L Chloride 108 (96-108) mmol/L Carbon Dioxide 19 L (22-29) mmol/L Anion Gap 14 (12-20) BUN 10 (9-16) mg/dL Creatinine 0.68 (0.5-1.4) mg/dL Estim Creat Clear Calc 113.3 Estimated GFR > 60 Random Glucose 112 (60-115) mg/dL Calcium 8.9 D (8.4-10.2) mg/dL Total Bilirubin 0.4 (0.0-1.0) mg/dL Direct Bilirubin 0.1 (0.0-0.5) mg/dL AST 23 (5-31) U/L ALT 14 (0-31) U/L Alkaline Phosphatase 81 (39-117) U/L Total Protein 7.5 (6.5-8.0) g/dL Albumin 4.8 (3.5-5.0) g/dL Lipase 12 (8-78) U/L Beta HCG, Quant < 2 mIU/mL Influenza Type A (PCR) NEGATIVE (Negative) Influenza Type B (PCR) NEGATIVE (Negative) RSV RNA Qual (PCR) NEGATIVE (Negative) SARS-CoV-2 RNA (RT-PCR) NEGATIVE (Negative) Independent Interpretation I performed an independent interpretation of an: CT Scan (Head: No acute intracranial pathology.) Radiology Impression Discussion of test interpretation with radiology: I have reviewed the radiologist's reading. Discharge Plan Discharge Clinical Impression: Seizure Patient Disposition: Home, Self-Care Instructions: Recurrent Seizures in Adults (ED) Prescriptions: New levetiracetam [Keppra] 500 mg tablet 500 mg PO BID Qty: 90 0RF No Action levetiracetam [Keppra] 500 mg tablet 500 mg PO BID Qty: 60 0RF Referrals: [facility] [Physician, Medical] Keith Jacinto MD [Physician, Neurology] Print Language: Greek
[2025-11-02 14:01] VITALS: BP 112/68; PULSE 103; RESP 15; O2SAT 100
[2025-11-02 14:03] LABS: MANUAL DIFF FLAG NO
[2025-11-02] MEDS: levETIRAcetam in NaCl (iso-os) 500 MG/100 ML PIGGYBACK 400 MG IV (14:03)
[2025-11-02 14:06] LABS: Hematocrit 38.9 % (37.0-47.0); Hemoglobin 13.1 g/dl (12.0-16.0); Imm Gran Abs Auto 0.03 X10*3/uL (0.00-0.03); Imm Gran Pct Auto 0.3 % (0.0-0.4); Lymphocytes Absolute Auto 2.0 X10*3/uL (1.2-4.9); Mean Corpuscular HGB Conc 33.7 g/dl (31.0-35.0); Mean Corpuscular Hemoglobin 29.5 pg (27.0-33.0); Mean Corpuscular Volume 87.6 fL (80.0-98.0); NRBC Abs Auto 0.000 X10*3/uL (0.0-0.012); NRBC Pct Auto 0.0 /100WBC (0.0-0.2); Platelet Count 206 X10*3/uL (160-400); Red Blood Count 4.44 X10*6/uL (4.20-5.50); White Blood Count 10.2 X10*3/uL (4.8-10.8)
[2025-11-02 14:31] LABS: Alanine Aminotransferase 14 U/L (0-31); Albumin Level 4.8 g/dL (3.5-5.0); Alkaline Phosphatase 81 U/L (39-117); Anion Gap 14 (12-20); Aspartate Amino Transferase 23 U/L (5-31); Blood Urea Nitrogen 10 mg/dL (9-16); Calcium 8.9 mg/dL (8.4-10.2); Carbon Dioxide 19 mmol/L (22-29); Chloride 108 mmol/L (96-108); Creatinine Clr Calc Pharmacy 113.3; Estimated Glomerular Filt Rate > 60; Lipase 12 U/L (8-78); Potassium 3.9 mmol/L (3.3-5.1); Sodium 137 mmol/L (135-145); Total Protein 7.5 g/dL (6.5-8.0)
[2025-11-02 14:48] LABS: Resp Syncy Virus RNA Qual PCR NEGATIVE (Negative); SARS COV2 PCR INHOUSE NEGATIVE (Negative)
[2025-11-02 15:57] VITALS: BP 111/68; PULSE 94; RESP 16; TEMP 36.7; O2SAT 100
[2025-11-02 16:40] VITALS: BP 107/65; PULSE 86; RESP 18; O2SAT 99
[2025-11-02 16:58] VITALS: BP 107/65; PULSE 86; RESP 18; TEMP 36.6; O2SAT 99
--- OUTSIDE RECORDS SUMMARY | 2025-11-02 21:27 | XMS_ITS | Clinical Summary ---
Author Organization [employer] Address [address] [place] [address] Care Team Providers Care Human Resources Training Manager Name Role Phone Amairani Nolan DO Primary Care Provider Allergies No known active allergies Medications levETIRAcetam (Keppra) 500 MG tablet Take 1 tablet (500 mg) by mouth 2 times daily. 60 tablet 3 04/06/2025 Active cholecalciferol (Vitamin D-3) 50 MCG (2000 UT) capsule Take 1 capsule (50 mcg) by mouth Once per day. 90 capsule 3 04/06/2025 Active Active Problems Problem Noted Date Diagnosed Date History of COVID-19 04/06/2025 Seizure disorder (CMS/HCC) 04/06/2025 Social History Tobacco Use Types Packs/Day Years Used Date Smoking Tobacco: Never Tobacco Cessation:Counseling Given: Not Answered Comments Unknown Sex and Gender Information Value Date Recorded Sex Assigned at Female 04/06/2025 8:59 AM EDT Legal Sex Female 3:32 PM EDT Gender Identity Female 04/06/2025 8:59 AM EDT Sexual Orientation Straight 04/06/2025 8: 59 AM EDT Last Filed Vital Signs Vital Sign Reading Time Taken Comments Blood Pressure 138/82 04/06/2025 9:38 AM EDT Pulse 70 04/06/2025 9:38 AM EDT Temperature 35.9 C (96.6 F) 04/06/2025 9:38 AM EDT Respiratory Rate 18 04/06/2025 9:38 AM EDT Oxygen Saturation 98% 04/06/2025 9:38 AM EDT Inhaled Oxygen Concentration - - Weight 59.3 kg (130 lb 12.8 oz) 04/06/2025 9:38 AM EDT Height - - Body Mass Index - - Plan of Treatment Health Maintenance Due Date Last Done Comments Depression Screening 1999 SDOH Screening 1999 Disability Screening 1999 Alcohol/Substance Use Screening 2011 Family Planning (PISQ) 2014 HPV Vaccines (1 - 3-dose series) 2014 DTaP/Tdap/Td Vaccines (1 - Tdap) 2018 Hepatitis B Vaccines (1 of 3 - 19+ 3-dose series) 2018 Pap Smear 2020 COVID-19 Vaccine (1 - 2024-2 6 season) 2025 Influenza Vaccine (#1) 2025 Tobacco Screening 04/06/2026 04/06/2025 Zoster Vaccines (1 of 2) 2049 RSV Patients and Pa tients Aged 60 years or older (1 - 1-dose 75+ series) 2074 HIV Screening Completed 04/06/2025 Hepatitis C Screening Completed 04/06/2025 HIB Vaccines Aged Out No longer eligi ble based on patient's age to complete this topic Hepatitis A Vaccines Aged Out No long er eligible based on patient's age to complete this topic IPV Vaccines Aged Out No longer eligi ble based on patient's age to complete this topic Meningococcal B Vaccine Aged Out No l onger eligible based on patient's age to complete this topic Meningococcal Vaccine Aged Out No ellie robert eligible based on patient's age to complete this topic Pneumococcal Vaccine: Pediat rics (0 to 5 Years) and At-Risk Patients (6 to 49) Years Aged Out No longer eligi ble based on patient's age to complete this topic RSV under 20 months Aged Out No longe r eligible based on patient's age to complete this topic Rotavirus Vaccines Aged Out No longer eligible based on patient's age to complete this topic Procedures Procedure Name Priority Date/Time Associated Diagnosis Comments HEPATITIS C AB W/REFL TO HCV RNA, QN, PCR Routine 04/06/2025 10:29 AM EDT New onset seizure (CMS/HCC) HIV 1/2 ANTIGEN/ANTIBODY, FOURTH GENERATION W/RFL Routine 04/06/2025 10:29 AM EDT New onset seizure (CMS/HCC) from Last 3 Months or Most Recently Relevant to Health Maintenance Results * Hepatitis C Antibody with Reflex to HCV, RNA, Quantitative, Real-Time PCR (04/06/2025 10:29 AM EDT) Pathologist [facility] [place] Hepatitis C Antibody Nonreactive Nonreactive [facility] Comment:Antibodies to HCV no t detected; does not exclude early acuteHCV infection. Blood Venous blood specimen / Unknown 04/06/2025 10:29 AM EDT 04/06/2025 11:33 AM EDT Amairani Nolan LAB BLOOD ORDERABLES Final R esult Performing Organization Address [facility] Co de Phone Number [facility] [address] [place] [phone] * HIV-1/2 Antigen and Antibodies, Fourth Generation, with Reflexes (04/06/2025 10:29 AM EDT) Pathologist [facility] [place] HIV AB/AG Nonreactive Nonreactive [facility] Comment:HIV-1 p24 Ag and/or HIV-1/HIV-2 Ab not detected.A test result that is nonreactive does not exclude thepossibility of exposure to or infection with HIV-1 and/orHIV-2. Nonreactive results in this assay for individualswith prior exposure to HIV-1 and/or HIV-2 may be due toantigen and antibody levels that are below the limit ofdetection of this assay.The [employer] HIV Ag/Ab Combo assay result andsupplemental assay results should be interpreted inconjunction with the patient's clinical presentation,history and other laboratory results. If the results areinconsistent with clinical evidence, additional testing issuggested to confirm the result. Blood Venous blood specimen / Unknown 04/06/2025 10:29 AM EDT 04/06/2025 11:33 AM EDT us Amairani Jurariella LAB BLOOD ORDERABLES Final R esult Performing Organization Address City/[facility]/ZIP Co de Phone Number [facility] [address] [place] [phone] from Last 3 Months or Most Recently Relevant to Health Maintenance Insurance [facility] [employer] Care Teams Human Resources Training Manager Relationship Specialty Start Date End Date Amairani Nolan DO [address] [place] [phone] PCP - General Family Medicine 04/06/25
== END 2025-11-02 16:58 | disposition home or self-care (01) ==
PROVIDERS: Emergency Provider Emergency Medicine
DX: G40.909 Epilepsy, unspecified, not intractable, without status epilepticus (principal); R51.9 Headache, unspecified; Z79.899 Other long term (current) drug therapy
CPT/HCPCS: 36415; 70450; 80048; 80076; 83690; 84702; 85025; 87637; 93005; 99284; 99285; J1953

== ENCOUNTER → 2025-11-02 13:33 | Outpatient (BNV) | payer SELFPAY | PROVIDERS: Emergency Provider Emergency Medicine; Visit Provider Internal Medicine | DX: R00.0 Tachycardia, unspecified (principal) | CPT/HCPCS: 93010 ==

== ENCOUNTER → 2025-11-02 13:38 | Outpatient (BNV) | payer SELFPAY | PROVIDERS: Emergency Provider Emergency Medicine; Visit Provider Radiology Diagnostic Radiology | DX: R56.9 Unspecified convulsions (principal) | CPT/HCPCS: 70450 ==